=== PATIENT | male | born 1995 | race African-American/Black ===

== ENCOUNTER 2021-08-06 18:03 | Emergency (ER) | payer OTHER, SELFPAY ==
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
[2021-08-06 18:09] VITALS: BP 153/74; PULSE 82; RESP 18; TEMP 36.2; O2SAT 97
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
[2021-08-06] MEDS: ACETAMINOPHEN 500 MG TABLET 1000 MG PO (19:15)
[2021-08-06] MEDS: Please add drug allergy info to patient profile. 1 EACH XX (19:15)
[2021-08-06 21:06] VITALS: BP 133/80; PULSE 80; RESP 16; TEMP 36.3; O2SAT 100
== END 2021-08-06 21:08 | disposition home or self-care (01) ==
PROVIDERS: Emergency Provider General Practice
DX: S16.1XXA Strain of muscle, fascia and tendon at neck level, initial encounter (principal); V44.5XXA Car driver injured in collision with heavy transport vehicle or bus in traffic accident, initial encounter
CPT/HCPCS: 72125; 72128; 72131; 99284; A9270